=== PATIENT | female | born 1970 ===

== ENCOUNTER 2018-04-08 18:51 | Emergency (ER) | payer MEDICAID ==
[2018-04-08] MEDS ORDERED: Sodium Chloride 0.9% 1,000 ML IV SCH (19:15)
[2018-04-08 19:16] LABS: BASO # 0.2 K/uL (0.0-0.2); BASO % 0.8 % (0.0-2.0); EOS # 0.6 K/uL (0.0-0.7); HEMOGLOBIN 13.1 g/dL (11.0-16.0); LYMPH # 8.9 K/uL (1.0-4.3); LYMPH % 42.2 % (20.0-40.0); MEAN CORPUSCULAR HGB CONC 31.6 g/dL (33.0-37.0); MONO # 1.5 K/uL (0.0-0.8); MONO % 7.2 % (0.0-10.0); NEUT # 9.9 K/uL (1.8-7.0); NEUT % 46.8 % (50.0-75.0); NRBC % 0.1 % (0.0-2.0); RBC 4.85 Mil/uL (3.80-5.20); RED CELL DISTRIBUTION WIDTH 15.6 % (11.5-14.5)
--- NOTE | 2018-04-08 19:17 | C.PDOC ---
History Of Present Illness 47 y/o F c PMHx HTN BIBEMS unresponsive. Shortly prior to arrival, patient was getting out of shower when she suddenly appeared to be passing out. Levi caught patient and laid her on floor. 1 hour ago was the last time well. When EMS arrived, she was noted to have L pupil constricted and narcan was administered with minimal response. Patient brought to ED, initial pulse ox 70% , corrected to 100% on NRB. Patient vomiting, which began shortly after narcan administration as per EMS. Patient unresponsive, withdrawal to painful stimuli, agonally breathing. Full HPI/ROS unobtainable due to clinical condition. Time Seen by Provider: 04/08/18 19:13 Chief Complaint (Nursing): Altered Mental Status Past Medical History Vital Signs: Last Vital Signs Temp Pulse 129 H 04/08/18 20:20 Resp 33 H 04/08/18 20:20 BP 230/105 H 04/08/18 20:20 Pulse Ox 100 04/08/18 20:20 - Medical History PMH: Arthritis, Asthma, Diabetes, HTN Family History: States: No Known Family Hx - Social History Hx Tobacco Use: Yes Hx Alcohol Use: No Hx Substance Use: No - Immunization History Hx Tetanus Toxoid Vaccination: No Hx Influenza Vaccination: No Hx Pneumococcal Vaccination: No Review Of Systems Review Of Systems: ROS cannot be obtained secondary to pt's inabilty to answer questions. Physical Exam - Physical Exam Additional Physical Exam Comments: Gen: Unresponsive Head: NC/AT Eyes: PERRL ENT: Emesis in mouth Neck: Supple Chest: No deformity CV: Regular rate. Radial pulses 2+ Lungs: Agonal breathing Abd: Soft Back: No stepoffs Extremities: No swelling Skin: No rash Neuro: Unresponsive. Withdraws to pain. ED Course And Treatment - Laboratory Results Result Diagrams: 04/08/18 19:13 04/08/18 19:13 O2 Sat by Pulse Oximetry: 78 Critical Care Time - Critical Care Note Total Time (in mins): 60 Comments: Required my immediate attention upon arrival, my constant presence, multiple consultations. Documented critical care: time excludes all time spent performing seperately billable procedures. NIHSS Stroke Scale - Date/Time Evaluation Performed Date Performed: 04/08/18 Time Performed: 19:12 When Was NIHSS Performed: Baseline - How Severe is the Stoke Level of Consciousness: 2=Obtunded LOC to Questions: 2=Neither correct LOC to commands: 2=Neither correct Best Gaze: 0=Normal Visual: 3=Bilateral Facial: 3=Complete unilateral paralysis Motor Arm - Left: 3=No effort against gravity (falls immediately) Motor Arm - Right: 3=No effort against gravity (falls immediately) Motor Leg - Left: 3=No effort against gravity (falls immediately) Motor Leg - Right: 3=No effort against gravity (falls immediately) Limb Ataxia: 0=Absent Sensory: 2=Severe to total loss Best Language: 3=Mute Dysarthia: 2=Severe, near unintelligible or worse Extinction & Inattention (Neglect): 0=Normal, no object Score: 31 Severity Of Stroke: 21-42= Severe Stroke rTPA Inclusion/Exclusion - Refusal of Treatment Patient Refused Treatment: No - Inclusion Criteria for Altepase Patient is 18 years or Older: Yes Clinical DX Ischemic Stroke Cause Neurological Deficit: No Time of Onset Established Less Than 270 Mins Before TX Begin: Yes Risk/Benefit Discussed With Patient/Family Member Present: Yes - Exclusion Criteria for Altepase Uncontrolled Hypertension at Time of TX (SBP>185 or DBP>110): Yes Evidence of an Intracranial Hemorrhage: Yes Medical Decision Making Medical Decision Making: Patient intubated as GCS less than 8 and required airway protection. Cardene drip for blood pressure control to SBP of 140, Keppra 1gm for seizure prophylaxis, propofol and fentanyl drips. CODE STROKE activated, suspected intracranial bleed. CT Head shows intraparenchymal hemorrhage involving gustavo/midbrain. Called Neurosurgery automation driver Shweta who was already on his way to [facility] for another emergent procedure and therefore unavailable. Called [facility] for transfer, accepted by Dr. Valentine. CTA shows no aneurysm. Disposition - Disposition Disposition: Trans to Other Acute Care Hosp Disposition Time: 20:54 Condition: CRITICAL Forms: [facility] (Bengali) - Clinical Impression Clinical Impression: Intraparenchymal hemorrhage of brain
[2018-04-08] MEDS ORDERED: Iodixanol 320 MG/ML 100 ML BOTTLE IV ONE (19:23)
[2018-04-08 19:25] LABS: ALB/GLOB RATIO 1.1 (1.0-2.1); ALBUMIN 3.7 g/dL (3.5-5.0); CALCIUM 8.3 mg/dl (8.6-10.4)
[2018-04-08 19:26] LABS: MEAN CELL VOLUME 85.6 fL (81.0-99.0); WHITE BLOOD COUNT 21.2 K/uL (4.8-10.8)
[2018-04-08 19:30] LABS: INR 0.9; PROTHROMBIN TIME 9.6 SECONDS (9.7-12.2)
[2018-04-08 19:37] LABS: HDL CHOLESTEROL 72 mg/dL (30-70)
[2018-04-08 19:38] LABS: TROPONIN I 0.033 ng/mL (0.00-0.120)
[2018-04-08] MEDS ORDERED: niCARdipine IV 25 MG in Sodium Chloride 0.9% 240 ML IV SCH (19:45)
[2018-04-08 19:47] LABS: LDL CHOLESTEROL 107 mg/dL (0-129)
[2018-04-08] MEDS ORDERED: Propofol 10 mg/ml 1,000 MG/100 ML VIAL ONE (20:02)
[2018-04-08] MEDS: Propofol 10 mg/ml 1,000 MG/100 ML VIAL IV PRN ×2 (20:08→20:44)
[2018-04-08] MEDS ORDERED: levETIRAcetam 500 MG in Sodium Chloride 0.9% 100 ML IVPB STA (20:12)
[2018-04-08 20:21] VITALS: BP 230/105; PULSE 129; RESP 33
[2018-04-08] MEDS ORDERED: levETIRAcetam 1,000 MG in Sodium Chloride 0.9% 100 ML IVPB ONE (20:30)
[2018-04-08 22:48] VITALS: O2SAT 78
--- NOTE | 2018-04-09 09:07 | RAD ---
Chest x-ray single frontal view History: Code stroke. Comparison: None available. Findings: Endotracheal tube extending into midthoracic trachea. Venous congestion. Prominent linear consolidative changes at the right lung base. Bilateral hilar prominence. Heart size within normal limits. Degenerative changes in the spine with paravertebral osteophytes. Impression: Endotracheal tube extending into midthoracic trachea. Venous congestion. Prominent linear consolidative changes at the right lung base. Bilateral hilar prominence.
--- NOTE | 2018-04-09 09:25 | CT ---
PROCEDURE: CT Angiography of the neck and brain dated 04/08/2018 HISTORY: Code stroke. COMPARISON: Comparison made with prior CT scan of the brain obtained earlier same day. Min. TECHNIQUE: Contiguous helical/transaxial images of the neck were obtained from the level of the skull-base to the superior mediastinum in the arteriographic phase of enhancement. Coronal and sagittal reformats or also generated. IV contrast dose: 100 cc Visipaque 320 Radiation Dose - DLP: 577.9 mGy-cm This CT exam was performed using one or more of the following dose reduction techniques: Automated exposure control, adjustment of the mA and/or kV according to patient size, and/or use of iterative reconstruction technique. . FINDINGS: Large brainstem hemorrhage seen on prior exam is somewhat less well delineated due to intravenous contrast injection and CTA technique. Aortic arch is patent with no significant atherosclerotic disease. Three-vessel arch. Major branch vessels are also widely patent. The common carotid arteries, carotid bifurcations and internal carotid artery's including the petrous cavernous and supraclinoid segments are widely patent. The vertebral arteries which appear codominant are patent throughout as well. The basilar artery and posterior cerebral arteries are patent The major branch vessels of the [place] are also patent. There is some mild asymmetry of the A1 segments right-sided which is larger in caliber/ more dominant than the left side. Middle cerebral arteries are also somewhat asymmetric right-sided larger in caliber/more dominant than the left. The distal anterior middle and posterior cerebral arteries are patent. No evidence of large aneurysm nor vascular malformation. IMPRESSION: No evidence of occlusion or significant stenosis. No evidence of intra cerebral aneurysm formation. There is no evidence of carotid artery dissection. Large brainstem hemorrhage.
--- NOTE | 2018-04-11 11:14 | CT ---
PROCEDURE: CT HEAD WITHOUT CONTRAST. HISTORY: COMPARISON: None available. TECHNIQUE: Axial computed tomography images were obtained through the head/brain without intravenous contrast. Radiation dose: Total exam DLP = 908.76 mGy-cm. This CT exam was performed using one or more of the following dose reduction techniques: Automated exposure control, adjustment of the mA and/or kV according to patient size, and/or use of iterative reconstruction technique. FINDINGS: HEMORRHAGE: There is acute parenchymal hemorrhage involving the midbrain, gustavo and medulla and extending through the right cerebellar peduncle into the right cerebellar hemisphere. Intraventricular hemorrhage in the 4th ventricle is suspected. There is likely hemorrhage within the perimesencephalic cistern. BRAIN: No intracranial mass. Mild periventricular chronic white matter ischemic change. Probable old left thalamic lacunar infarct. VENTRICLES: No ventriculomegaly. No midline shift. CALVARIUM: Unremarkable. PARANASAL SINUSES: Chronic ethmoid and left maxillary sinusitis. MASTOID AIR CELLS: Unremarkable as visualized. No inflammatory changes. OTHER FINDINGS: None. IMPRESSION: Parenchymal hemorrhage in the midbrain/ gustavo, right cerebellar peduncle and right cerebellar hemisphere with probable perimesencephalic cisternal hemorrhage and intra 4th ventricular hemorrhage. Additional minor findings as above. Preliminary interpretation of this examination was reported by [employer] at 8:04 p.m. on 04/08/2018.. There is concurrence of this report with the preliminary interpretation.
--- NOTE | 2018-04-11 22:35 | CARD ---
APPROVED REPORT EKG Measurement Heart [id number] NE 140P81 [id number] <Conclusion> Sinus tachycardia with premature ventricular complexes or fusion complexes with junctional escape complexes Possible Left atrial enlargement Borderline ECG
== END 2018-04-08 20:57 | disposition short-term general hospital (02) ==
LOC: C.ER 18:51
DX: I61.8 Other nontraumatic intracerebral hemorrhage (principal); I10 Essential (primary) hypertension; E11.9 Type 2 diabetes mellitus without complications; J45.909 Unspecified asthma, uncomplicated
CPT/HCPCS: 31500; 70450; 70496; 70498; 71045; 80053; 80061; 82948; 83036; 84484; 85025; 85610; 85730; 86850; 86900; 93005; 96365; 99285; J1953; J2704; J3010; J7030; Q9967